=== PATIENT | male | born 1975 | race Caucasian/White ===

== ENCOUNTER 2017-09-19 06:41 | Day surgery (SDC) | payer OTHER ==
[~2017-09-19] VITALS: Ht 185.4 cm; Wt 108.9 kg
[~2017-09-19 06:41] MED LIST: OMEPRAZOLE20 MG PO
[2017-09-19 09:22] VITALS: BP 114/66
== END 2017-09-19 09:21 | disposition home or self-care (01) | DRG 392 ==
LOC: ENDO 06:41 → ORM 07:30 → ENDO 08:30
PROVIDERS: ATTEND Internal Medicine Gastroenterology
PROC: 0DB48ZX Excision of Esophagogastric Junction, Via Natural or Artificial Opening Endoscopic, Diagnostic (ICD-10-PCS; principal; 2017-09-19)
PROC: 0DB58ZX Excision of Esophagus, Via Natural or Artificial Opening Endoscopic, Diagnostic (ICD-10-PCS; 2017-09-19)
PROC: 0D758ZZ Dilation of Esophagus, Via Natural or Artificial Opening Endoscopic (ICD-10-PCS; 2017-09-19)
DX: K22.2 Esophageal obstruction (principal); K20.0 Eosinophilic esophagitis; K22.8 Other specified diseases of esophagus; K29.50 Unspecified chronic gastritis without bleeding; Q40.8 Other specified congenital malformations of upper alimentary tract; K44.9 Diaphragmatic hernia without obstruction or gangrene; K21.0 Gastro-esophageal reflux disease with esophagitis

== ENCOUNTER → 2018-06-13 | Outpatient (REF) ==
[2018-06-13 09:37] LABS: CHOLESTEROL HDL RATIO 4.4 (<4.4 (CALC))
== END | disposition home or self-care (01) | DRG 951 ==
LOC: LAB 06:36
PROVIDERS: ATTEND Family Medicine
DX: Z02.6 Encounter for examination for insurance purposes (principal)

== ENCOUNTER 2019-09-17 19:57 | Emergency (ER) | payer OTHER ==
[~2019-09-17] VITALS: Ht 185.4 cm; Wt 111.3 kg
[2019-09-17 21:16] VITALS: BP 138/92
== END 2019-09-17 21:16 | disposition home or self-care (01) | DRG 563 ==
LOC: ED 19:57
DX: S63.617A Unspecified sprain of left little finger, initial encounter (principal); W22.8XXA Striking against or struck by other objects, initial encounter; Y93.89 Activity, other specified; Y92.009 Unspecified place in unspecified non-institutional (private) residence as the place of occurrence of the external cause

== ENCOUNTER 2021-05-24 08:38 | Emergency (ER) | payer OTHER ==
[~2021-05-24] VITALS: Ht 185.4 cm; Wt 100.0 kg
[2021-05-24] MEDS ORDERED: TORADOL PO (11:32)
[2021-05-24 11:53] VITALS: BP 146/98
== END 2021-05-24 11:58 | disposition home or self-care (01) | DRG 563 ==
LOC: ED 08:38
DX: S56.911A Strain of unspecified muscles, fascia and tendons at forearm level, right arm, initial encounter (principal); X58.XXXA Exposure to other specified factors, initial encounter

== ENCOUNTER 2021-10-03 15:10 | Emergency (ER) | payer OTHER ==
[~2021-10-03] VITALS: Ht 185.4 cm; Wt 113.0 kg
[~2021-10-03 15:10] MED LIST changes: +TORADOL PO
[2021-10-03 15:46] LABS: HEMATOCRIT 51.8 % (39.0-50.0); IMMATURE GRANULOCYTES 0.1 % (0.0-5.0); MEAN CELL VOLUME 88.1 fL CALC (80.0-100.0); MEAN CORPUSCULAR HGB 31.3 pG CALC (26.0-32.0); MEAN CORPUSCULAR HGB CONC 35.5 g/dL CAL (32.0-36.0); NEUT# 12.88 thou/uL (1.82-7.42); RED BLOOD COUNT 5.88 mill/uL (4.70-6.10); RED CELL DISTRI WIDTH 12.4 % (11.5-15.5)
[2021-10-03 15:49] LABS: HEMOGLOBIN 18.4 g/dl (14.0-18.0)
[2021-10-03 15:58] LABS: ALBUMIN 5.2 g/dL (3.2-5.0); CREATININE 1.5 mg/dL (0.7-1.3); POTASSIUM 4.5 mmol/l (3.5-5.1)
[2021-10-03 16:00] LABS: BILIRUBIN, TOTAL 1.4 mg/dL (0.0-1.4)
[2021-10-03] MEDS ORDERED: OMEPRAZOLE DR40 MG PO (16:15)
[2021-10-03] MEDS ORDERED: ZOFRAN4 MG/TAB PO (18:04)
[2021-10-03 18:17] VITALS: BP 111/71
== END 2021-10-03 18:27 | disposition home or self-care (01) | DRG 179 ==
LOC: ED 15:10
PROVIDERS: Family Medicine
DX: U07.1 COVID-19 (principal); R19.7 Diarrhea, unspecified; R11.2 Nausea with vomiting, unspecified; R10.84 Generalized abdominal pain
CPT/HCPCS: Q9967

== ENCOUNTER 2023-04-03 07:10 | Day surgery (SDC) | payer OTHER ==
[~2023-04-03] VITALS: Ht 185.4 cm; Wt 108.9 kg
[~2023-04-03 07:10] MED LIST changes: +OMEPRAZOLE DR40 MG PO; +TRAMADOL HCL E200 M1 PO; +ZOFRAN4 MG/TAB PO
[2023-04-03] MEDS ORDERED: PERCOCET 5/325M1 TAB PO (08:32)
[2023-04-03 10:39] VITALS: BP 136/82
== END 2023-04-03 11:10 | disposition home or self-care (01) | DRG 352 ==
LOC: ORM 07:10
PROVIDERS: ATTEND Surgery
PROC: 0YUA4JZ Supplement Bilateral Inguinal Region with Synthetic Substitute, Percutaneous Endoscopic Approach (ICD-10-PCS; principal; 2023-04-03)
DX: K40.20 Bilateral inguinal hernia, without obstruction or gangrene, not specified as recurrent (principal); D17.6 Benign lipomatous neoplasm of spermatic cord
CPT/HCPCS: C1781; J0131; J0690; J1100